=== PATIENT | female | born 2005 | race Caucasian/White ===

== ENCOUNTER 2024-06-30 17:02 | Emergency (ER) | payer MEDICAID, SELFPAY ==
[2024-06-30 17:02] VITALS: BP 118/76; PULSE 83; RESP 14; TEMP 36.6; O2SAT 96; BMI 19.1
--- NOTE | 2024-06-30 18:57 | EDS_ITS ---
HPI History of Present Illness Chief Complaint: Back Informant: patient Narrative Narrative: Patient is a 19-year-old female with no significant past medical history (reports history of childhood asthma but she is going out of it) presenting with chest pain. Patient states since Wednesday she has had pain over her sternum. She notes that she works at [employer] and has to do a lot of pumping of the syrups. She states she has been 6 to 8 hours a day just pumping. She also notes she has had some mild cold symptoms. She is been taking severe cold and sinus with Tylenol and that helps a little bit. She also tried taking him ibuprofen but she has a hard time swallowing it so she is to crush it up. She last took at 10 AM. She is not really receiving any relief. She also has pain in the middle of her back that radiates to the shoulders to pain on which arm she is using. She notes her right is worse than her left but is right-handed. Significant other notes that she has had a croupy cough lately. She has had intermittent cold and URI symptoms all winter. She denies any tobacco use but does vape THC. Denies any fever. Denies any difficulty breathing. No other complaints or concerns reported at this time [facility] Medical History Asthma Scoliosis Allergy/AdvReac Type Severity Reaction Status Date / Time No Known Allergies Allergy Verified 06/30/24 17:03 Social History Smoking Status: Never smoker ROS ROS ED Constitutional Constitutional ED: Denies chills or fever(s) Cardiovascular Cardiovascular: Reports chest pain; Denies palpitations or racing heartbeat Respiratory/Chest Respiratory/Chest: Reports cough; Denies dyspnea or sputum Gastrointestinal Gastrointestinal: Denies nausea or vomiting Musculoskeletal Musculoskeletal: Reports back pain; Denies myalgias Integumentary Denies rash Neurologic Neurologic: Denies paresthesias or weakness Psychiatric Psychiatric: Reports anxiety EXAM Physical Exam Const Vital Signs: 06/30/24 17:02 Temperature 98 F Temperature Source Temporal Pulse Rate 83 Respiratory Rate 14 Blood Pressure 118/76 Blood Pressure Mean 90 Pulse Ox 96 Oxygen Delivery Method Room Air Positive well nourished and well developed General Appearance ED: well developed and NAD HEENT Reports moist mucous membranes Eyes PERRL Neck no lymphadenopathy, supple and no JVD General: Negative for tenderness Chest Wall inspection of chest normal Chest Narrative: No chest wall crepitus. Highly reproducible tenderness to palpation of the mid sternum. Resp normal respiratory effort and clear to auscultation bilaterally Cardio regular rate, regular rhythm and no murmurs GI normal to inspection, nondistended, normoactive bowel sounds and non-tender Back/Spine Back/Spine Narrative: No tenderness to palpation of the thoracic spine or paraspinal muscles at this time. Extremity normal to inspection Extremity Narrative: Normal range of motion of the bilateral shoulders. No significant pain with range of motion of the shoulders. General Extremety ED: Negative for edema or tenderness General Extremity: Negative for edema Neuro oriented x3 Sensorium / Orientation: alert Psych mental status grossly normal Mood & Affect: anxious Skin no rashes or lesions noted and no wounds MDM MDM MDM Narrative Medical decision making narrative: Patient is evaluated for chest pain. Chest pain is located around her sternum and highly reproducible with direct palpation. She also notes has been having some back pain does not have any at this time. Vital signs are normal. She overall is well-appearing. Differential includes costochondritis, pectoralis strain, pneumothorax, pneumonia, pleural effusion. Patient is PE RC negative low suspicion for PE as the cause her symptoms. She is overall well-appearing. This pain does not sound cardiac at all and I do not think requires EKG or cardiac workup. Patient is given a Lidoderm patch as well as Tylenol with improvement of her pain. Chest x-ray is obtained and reviewed by myself as well as radiology does not show any acute process. Patient will be discharged home with instructions to use [id number] Salonpas Exer strength 4% patches as well as ibuprofen. Given return precautions. Discharged home in stable condition. Is given a work note per her request through the weekend. Is encouraged to follow-up with her primary care doctor. [facility] Radiography Diagnostic Testing: Clinical Impression(s) from Imaging Studies Chest X-Ray 06/30/24 19:00 IMPRESSION: NEGATIVE CHEST Reading Location: [facility] Discharge Plan Triage Chief Complaint: Back ED Provider: Estefani Ramirez Dx/Rx/DC Orders Clinical Impression: Acute costochondritis Instructions: ED Chest Wall Pain, Costochondritis Stand Alone Forms: ED Work / School Excuse Primary Care Provider: Care Physician,No Primary Referrals: [facility] [Non-Staff] - Care Physician,No Primary [Primary Care Provider] - Activity Restrictions/Additional Instructions: Please follow-up with your primary care doctor. You have been given referral to the [facility]. I recommend using [id number] 4% Salonpas extra strength Lidoderm patches to help with the pain. 1 was placed on you in the emergency room. In addition taking up to 600 mg of liquid ibuprofen (this is 30 mL of children's ibuprofen) every 6 hours to help with pain. Print Language: Korean Disposition Disposition: Home, Self Care
--- NOTE | 2024-06-30 19:00 | RAD_ITS ---
PROCEDURE: CHEST PA AND LATERAL REASON FOR EXAM: Back pain. TECHNIQUE: Frontal and lateral views of the chest. COMPARISON: None. FINDINGS: The heart size is normal. The mediastinal contour is unremarkable. The lungs are clear. The bones are unremarkable. RAD/Chest PA and Lateral IMPRESSION: NEGATIVE CHEST Reading Location: [id number]
[2024-06-30] MEDS: Ibuprofen 100 MG/5 ML UDC 600 MG PO (19:11)
[2024-06-30] MEDS: Lidocaine 5% Patch 1 PATCH TOPICAL (19:11)
[2024-06-30 20:18] VITALS: BP 118/76; PULSE 83; RESP 14; TEMP 36.6; O2SAT 96
== END 2024-06-30 20:19 | disposition home or self-care (01) ==
PROVIDERS: Emergency Provider Emergency Medicine; Visit Provider Emergency Medicine
DX: M94.0 Chondrocostal junction syndrome [Tietze] (principal); M54.9 Dorsalgia, unspecified; M25.511 Pain in right shoulder; M25.512 Pain in left shoulder; J45.909 Unspecified asthma, uncomplicated; R05.9 Cough, unspecified
CPT/HCPCS: 71046; 99282